=== PATIENT | male | born 1990 | race Caucasian/White ===

== ENCOUNTER 2021-09-27 03:46 | Emergency (ER) | payer SELFPAY ==
[2021-09-27 04:12] VITALS: BMI 31.8
[2021-09-27 05:46] LABS: HEMOGLOBIN 14.8 GM/dL (11.7-16.9); MCH 31.8 pg (25.7-33.7); MCHC 34.6 g/dl (32.0-35.9); MEAN CELL VOLUME 91.9 fl (80-96); MEAN PLT VOLUME 7.6 fl (7.5-11.1); PLATELET COUNT 283 10^3/uL (134-434); RBC 4.67 M/mm3 (4.00-5.60); RDW 13.2 % (11.9-15.9); WHITE BLOOD COUNT 6.9 K/mm3 (4.0-10.0)
[2021-09-27] MEDS ORDERED: SODIUM CHLORIDE 0.9% 500 ML INFUS.BAG IV ONE (06:02)
[2021-09-27 06:06] LABS: CHLORIDE 107 mmol/L (98-107); SODIUM 140 mmol/L (136-145)
[2021-09-27 06:08] LABS: ALBUMIN 3.9 g/dl (3.4-5.0); ANION GAP 6 MMOL/L (8-16); BLOOD UREA NITROGEN 20.1 mg/dL (7-18); CO2 27 mmol/L (21-32); GLUCOSE,RANDOM 95 mg/dL (74-106)
[2021-09-27 06:11] LABS: CREATININE 1.3 mg/dL (0.55-1.3); SGOT/AST 17 U/L (15-37); SGPT/ALT 36 U/L (13-61)
[2021-09-27 06:13] LABS: BILIRUBIN,TOTAL 0.4 mg/dL (0.2-1); TOT PROT 7.7 g/dl (6.4-8.2)
[2021-09-27 06:14] LABS: ALK PHOS 62 U/L (45-117)
[2021-09-27 07:35] LABS: BASO % 0.4 % (0-2.0); EOS % 0.5 % (0-4.5); LYMPH % 15.9 % (8-40); MONO % 8.9 % (3.8-10.2); NEUT % 74.3 % (42.8-82.8)
[2021-09-27] MEDS ORDERED: DEXAMETHASONE SOD PHOSPHATE 10 MG/1 ML VIAL IVPUSH ONE (07:37)
[2021-09-27] MEDS ORDERED: DEXAMETHASONE SOD PHOSPHATE 10 MG/1 ML VIAL ONE (07:57)
[2021-09-27 10:37] VITALS: BP 115/72; PULSE 87; TEMP 98.9
== END 2021-09-27 10:58 | disposition home or self-care (01) ==
LOC: JER 03:46
PROC: 3E033NZ Introduction of Analgesics, Hypnotics, Sedatives into Peripheral Vein, Percutaneous Approach (ICD-10-PCS; principal; 2021-09-27)
DX: R09.02 Hypoxemia (principal); R55 Syncope and collapse
CPT/HCPCS: 36415; 70450-TC; 71045-TC-FY; 71275-TC; 80053; 82962; 84484; 85025; 93005; 93010; 99285-25; C9803; J1100; Q9967; U0003; U0005